=== PATIENT | male | born 1985 | race Caucasian/White ===

== ENCOUNTER → 2017-08-13 | Outpatient (CLI) | payer BC ==
--- NOTE | 2017-08-13 20:09 | PN ---
PROGRESS NOTE DATE OF SERVICE: 08/13/2017 A 32-year-old gentleman has been followed in sleep center for treatment of obstructive sleep apnea-hypopnea syndrome. The patient has extremely severe obstructive sleep apnea and he had been started on treatment with CPAP for about 1 year ago. I believe I did not see him since he was started on treatment with CPAP, so I explained to him results of his sleep studies in detail, including his polysomnogram and CPAP and then BiPAP titration. Presently, patient is on treatment with BiPAP with a pressure 24/20 cm of water. During the diagnostic sleep study and during titration, he had significant oxygen desaturation. Subsequently after he was started on treatment with BiPAP, I repeated a oximetry at home and it showed that his oxygen in acceptable range. The patient continued to use his machine, has quite significant leak from his mask. Leak is up to 100 L/minute. The patient lost 54 pounds since previous titration. Apnea-hypopnea index for the last 6 months from his machine screening is only 2.0, which is perfect. The patient has episodes of closing of his nose. [place] Sleepiness Scale is 8. MEDICATIONS: 1. Flonase. 2. Claritin. PHYSICAL EXAMINATION: GENERAL Patient in no distress. VITAL SIGNS BP 135/78, HR 78, RR 16, weight 382, temp 96.9, oxygen saturation on room air 97%. HEMARY PERRLA, EOMI, evaluation of oropharynx showed tongue protrudes midline, extremely low position of soft palate. Neck Supple, no JVD. Thyroid is not palpable. LUNGS Clear to percussion and to auscultation. Good air exchange. No wheezing or rhonchi. HEART S1, S2 regular. No murmurs, gallops, or rubs. ABDOMEN Obese, soft and nontender. Bowel sounds are present. No organomegaly appreciated. EXTREMITIES No clubbing or cyanosis. GATE OPERATOR Awake, alert, and oriented X3. Cranial nerves 2 to 7 intact. There is no fasciculation or atrophy. noted. No focal deficits observed. IMPRESSION: 1. Extremely severe obstructive sleep apnea-hypopnea syndrome; apnea-hypopnea index 111 with extremely severe oxygen desaturation to 35.7% on control with BiPAP at the pressure of 24/20 cm of water and patient benefitting from treatment, but recently has more problem related to the nose. 2. The patient lost about 54 pounds since previous titration and needs to repeat titration for re-evaluation of affective BiPAP pressure at the present time. 3. Obesity. 4. History of sinusitis. 5. Multiple allergies. PLAN: 1. Repeat BiPAP titration for re-evaluation of affective BiPAP pressure at the present time. 2. Continue losing weight. 3. Sleep hygiene with regular time in bed for at least 8 hours. 4. No driving if feeling any sleepiness. 5. To replace full face mask to new set. 6. Prescription for all necessary CPAP supplies, including mask, tube, filters. Thank you very much for allowing me to participate in management of your patient. Sincerely, Jovanni Wong MD, PhD, FAASM Diplomat of [place] [employer] [place] [employer] Family Law Attorney of [facility] [place] MMPAMELAL / KIA: [id number] /
== END | disposition home or self-care (01) ==
LOC: SLEEP 16:22
PROVIDERS: ATTEND Internal Medicine
DX: G47.33 Obstructive sleep apnea (adult) (pediatric) (principal); E66.9 Obesity, unspecified; T78.40XA Allergy, unspecified, initial encounter; Z87.09 Personal history of other diseases of the respiratory system; Z79.899 Other long term (current) drug therapy

== ENCOUNTER → 2018-04-08 | Outpatient (CLI) | payer BC ==
--- NOTE | 2018-04-08 19:04 | PN ---
PROGRESS NOTE DATE OF SERVICE: 04/08/2018 This patient is a 33-year-old gentleman who has been followed in Sleep Center for treatment of obstructive sleep apnea-hypopnea syndrome. Patient has a long history of obstructive sleep apnea and was on treatment with BiPAP with very high BiPAP pressure, around 24/20, and after his last titration the pressure was significantly decreased to 13/9, and according to titration, that pressure was supposed to be enough for the patient. After pressure was decreased, patient tried to use the machine but felt that the pressure was not enough for him. He had episodes of breathing problems with that pressure. The patient's weight also increased by about 30 pounds since last titration. I checked the patient's BiPAP unit. Pressure is 13/9 cm of water. Patient has practically not used it for the last month. [place] Sleepiness Scale today is significantly increased at 15. CURRENT MEDICATIONS: 1. Flonase. 2. Loratadine. 3. Levothyroxine. 4. Ibuprofen. 5. Cyclobenzaprine. PHYSICAL EXAMINATION: GENERAL A pleasant gentleman without distress. VITAL SIGNS: BP 197/81, HR 80, RR 20, weight 401 pounds, temperature 97.8, oxygen saturation at room air 97%. HEENT: PERRLA, EOMI. Evaluation of oropharynx showed tongue protrudes midline; extremely low position of soft palate. NECK: Supple. No JVD. Thyroid is not palpable. LUNGS: Clear to percussion and to auscultation. Good air exchange. No wheezing or rhonchi. HEART: S1, S2 regular. No murmurs, gallops or rubs. ABDOMEN: Obese. EXTREMITIES : No clubbing or cyanosis. CONFERENCE RESERVATIONIST: Awake, alert, and oriented X3. Cranial nerves 2 to 7 intact. There is no fasciculation or atrophy. noted. No focal deficits observed. IMPRESSION: 1. Obstructive sleep apnea-hypopnea syndrome. After decreasing pressure in his machine during his previous visit because the patient lost 50 pounds, he cannot use the machine with that pressure because again his weight has increased, this time by 30 pounds. 2. Obesity. 3. History of sinusitis. 4. History of multiple allergies. PLAN: 1. I increased pressure in the machine to 17/13 cm of water. 2. Patient will try to use equipment every night. 3. Losing weight. 4. Sleep hygiene with regular time in bed for at least 8 hours. 5. No driving if feeling any sleepiness. 6. Follow-up visit in one month. Thank you very much for allowing me to participate in the management of your patient. Sincerely, Jovanni Wong MD, PhD, FAASM Diplomat of [place] [employer] [place] [employer] Business System Consultant of [facility] [place] MMODL / IJN: [id number] /
== END ==
LOC: SLEEP 15:48
PROVIDERS: ATTEND Internal Medicine
DX: G47.33 Obstructive sleep apnea (adult) (pediatric) (principal); E66.9 Obesity, unspecified; J32.9 Chronic sinusitis, unspecified; Z88.8 Allergy status to other drugs, medicaments and biological substances